=== PATIENT | male | born 1975 | race Caucasian/White ===

== ENCOUNTER → 2025-03-09 | Outpatient (REF) | payer BC ==
[2025-03-09 18:41] LABS: FREE T3 1.2 PG/ML (2.3-4.2)
[2025-03-09 18:42] LABS: FREE T4 0.21 NG/DL (0.89-1.76)
== END ==
LOC: M LAB REF 17:40
PROVIDERS: ATTEND Student in an Organized Health Care Education/Training Program
DX: E05.90 Thyrotoxicosis, unspecified without thyrotoxic crisis or storm (principal)